=== PATIENT | male | born 1985 | race Caucasian/White ===

== ENCOUNTER 2020-05-15 11:18 | Emergency (ER) | payer OTHER, MEDICAID ==
[~2020-05-15] VITALS: Ht 182.8 cm; Wt 90.4 kg
[~2020-05-15 11:18] MED LIST: ACHYD1T PO; CYCL10TA9 PO; DOXY100C2 PO; IBP800T PO
--- NOTE | 2020-05-15 12:41 | ED Cardiac General ---
History of Present Illness General Chief Complaint: Cardiac/General Problems Stated Complaint: HYPERTENSION 169/96 Source: patient History of Present Illness Date Seen by Provider: May 15, 2020 Time Seen by Provider: 12:41 Initial Comments 34-year-old male presenting with concerns for high blood pressure. He has long- standing blood pressure issues but normally it has been controlled. Recently they had adjusted his medication at the clinic. He was just started on low-dose hydrochlorothiazide. He has been on this for 4-5 days. He has been waking up with diastolic blood pressure around 100. He denies having any blurry vision or headaches when he wakes up. He has been having some left shoulder pains and an old injury. He states he has COPD and chronic shortness of breath from that but doesn't feel more short of breath than normal. He denies having nausea or vomiting. Allergies and Home Medications Allergies Coded Allergies: Penicillins (Verified Allergy, Intermediate, HIVES, 04/21/13) Home Medications Carvedilol 6.25 Mg Tablet, 6.25 MG PO BID Prescribed by: DALLIN SANDOVAL on 05/15/20 1345 Cyclobenzaprine Hcl 10 Mg Tablet, 1 EACH PO HS, (Reported) Doxycycline Hyclate 100 Mg Capsule, 1 EACH PO BID Prescribed by: HAY SHAH on 04/21/13 2110 Hydrocodone Bit/Acetaminophen 1 Ea Tab, 1 EA PO TID PRN, (Reported) Ibuprofen 800 Mg Tab, 800 MG PO TID, (Reported) Patient Home Medication List Home Medication List Reviewed: Yes Review of Systems Review of Systems Constitutional: No chills, No dizziness, No fever EENTM: No Blurred Vision, No Double Vision, No Ear Drainage, No Ear Pain, No Nose Congestion, No Throat Pain Respiratory: Denies Cough; Shortness of Air (chronic due to COPD and not worse than normal) Cardiovascular: Denies Chest Pain Gastrointestinal: Denies Nausea, Denies Vomiting Genitourinary: No Symptoms Reported Musculoskeletal: joint pain (chronic left shoulder pain) Skin: no symptoms reported Psychiatric/Neurological: No Symptoms Reported Endocrine: No Symptoms Reported Past Mopfuvn-[id number]-[id number] Hx Past Med/Social Hx: Reviewed Nursing Past Med/Soc Hx Patient Social History Recent Foreign Travel: No Contact w/Someone Who Travel: No Past Medical History Respiratory: Yes COPD Cardiac: Yes Hypertension Neurological: No Reproductive Disorders: No Sexually Transmitted Disease: No HIV/AIDS: No Genitourinary: No Gastrointestinal: No Musculoskeletal: Yes Arthritis Endocrine: No HEENT: No Cancer: No Psychosocial: Yes Anxiety Adverse Reaction/Blood Tranf: No Physical Exam Vital Signs Capillary Refill : Height, Weight, BMI Height: '" Weight: 150lbs. oz. [id number]; BMI Method:Stated General Appearance: No Apparent Distress, WD/WN HEENT: PERRL/EOMI, Pharynx Normal Neck: Full Range of Motion, Normal Inspection, Non Tender, Supple Respiratory: Chest Non Tender, Lungs Clear, Normal Breath Sounds, No Accessory Muscle Use, No Respiratory Distress Cardiovascular: Regular Rate, Rhythm, Normal Peripheral Pulses Neurologic/Psychiatric: Alert, Oriented x3, No Motor/Sensory Deficits, Normal Mood/Affect, tile classifier II-XII Norm as Tested Skin: Normal Color, Warm/Dry Progress/Results/Core Measures Progress Progress Note : Progress Note Reassured patient exam was benign. Cough and discussed with Dr. Ledezma about patient. With his blood pressure fluctuating some but not having any abnormal labs according to the patient since he had been checked through the clinic last week will increase his Coreg to 6.25 twice a day. Have him recheck with the clinic about his meds. Counseled on follow-up and return precautions. Departure Impression Primary Impression: Hypertension Qualified Codes: I10 - Essential (primary) hypertension Disposition: 01 HOME, SELF-CARE Condition: Stable Departure-Patient Inst. Decision time for Depature: 13:42 Referrals: [facility] [place] (PCP) Primary Care Physician BECCA RAUSCH APRN (Family) Primary Care Physician Patient Instructions: High Blood Pressure (DC), DASH Diet, Controlling Your Blood Pressure Through Lifestyle Add. Discharge Instructions: Increase your Carvedilol to 6.25 mg twice a day. Check back with Becca and Dr. Ledezma for follow up about your high blood pressure. All discharge instructions reviewed with patient and/or family. Voiced understanding. Scripts Carvedilol (Carvedilol) 6.25 Mg Tablet 6.25 MG PO BID for Hypertension for 30 Days, #60 TAB 0 Refills Prov: DALLIN SANDOVAL MD 05/15/20 DALLIN SANDOVAL MD May 15, 2020 12:41
--- NOTE | 2020-05-15 13:20 | NUR ---
Dr Ledezma calling Dr Kraft back to discuss the patient BP medication and management. [facility].
[2020-05-15] MEDS ORDERED: CARV6.252 PO (13:45)
[2020-05-15 13:50] VITALS: BP 173/92
[2020-05-15] MEDS ORDERED: GABAPENTIN (20:37)
[2020-05-15] MEDS ORDERED: BUDE10.2 (20:37)
[2020-05-15] MEDS ORDERED: HYDROCHLOROTHIAZIDE (20:37)
[2020-05-15] MEDS ORDERED: ALPR0.254 (20:37)
== END 2020-05-15 13:50 | disposition home or self-care (01) ==
LOC: EDUNIT# 11:18 → ER FS 11:21
DX: I10 Essential (primary) hypertension (principal); Z88.0 Allergy status to penicillin
CPT/HCPCS: 99283